=== PATIENT | male | born 1980 ===

== ENCOUNTER 2024-10-04 15:38 | Outpatient (CLI) | payer OTHER, SELFPAY ==
--- NOTE | 2024-10-04 09:15 | DI.RAD_ITS ---
Exam(s) XR WRIST LT COMPLETE EXAM: XR WRIST LT COMPLETE CLINICAL HISTORY: LEFT WRIST FX. TECHNIQUE: 2D digital imaging was performed. Three views. COMPARISON: CR XR WRIST MIN 3 VIEWS LT from 09/25/2024 FINDINGS: A splint is in place which partially obscures the bony detail. Stable alignment of distal radial fra cture. IMPRESSION: Stable alignment of distal radial fracture. DATA REPOSITORY: RADIATION DOSE DELIVERED:
== END 2024-10-04 15:39 | disposition home or self-care (01) ==
LOC: DIORS 15:39
PROVIDERS: PCP Family Medicine; Visit Provider Student in an Organized Health Care Education/Training Program
DX: S52.325A Nondisplaced transverse fracture of shaft of left radius, initial encounter for closed fracture (principal); X58.XXXA Exposure to other specified factors, initial encounter
CPT/HCPCS: 73110

== ENCOUNTER 2024-11-08 15:18 | Outpatient (CLI) | payer OTHER, SELFPAY ==
--- NOTE | 2024-11-08 15:15 | DI.RAD_ITS ---
Exam(s) XR WRIST LT LIMITED EXAM: XR WRIST LT LIMITED CLINICAL HISTORY: f/u l distal rad fx. TECHNIQUE: 2D digital imaging was performed. COMPARISON: CR XR WRIST LT COMPLETE from 10/04/2024 FINDINGS: Two views-AP and lateral: Subtle nondisplaced fracture site the distal radius is unchanged. No significant ulnar variance. Sc aphoid and scapholunate distance are normal. Ulnar styloid process is intact. Bone density is age-a ppropriate. IMPRESSION: Stable appearance of the nondisplaced distal radius fracture site. DATA REPOSITORY: RADIATION DOSE DELIVERED:
== END 2024-11-08 15:19 | disposition home or self-care (01) ==
LOC: DIORS 15:19
PROVIDERS: PCP Family Medicine; Visit Provider Student in an Organized Health Care Education/Training Program
DX: S52.502D Unspecified fracture of the lower end of left radius, subsequent encounter for closed fracture with routine healing (principal); X58.XXXD Exposure to other specified factors, subsequent encounter
CPT/HCPCS: 73100